=== PATIENT | female | born 1990 | race Caucasian/White ===

== ENCOUNTER 2019-10-22 23:42 | Emergency (ER) | payer OTHER, SELFPAY ==
[2019-10-22 23:57] VITALS: BP 122/81; PULSE 82; RESP 18; TEMP 37.1; O2SAT 98; BMI 30.5
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
--- NOTE | 2019-10-23 | PC.NURSE ---
PT states not feeling well, CP and SOB since 2100 tonight and a headache upon her arrival to ED. Pt denies cough, fever, n/v/d or cold like symptoms. 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 Pt states came to ER because her grandparents who babysit her child wanted her to get tested and are concerned they may have been exposed through pt. PT in no acute distress able to speak in full sentences and ambulate independently in ER.
--- NOTE | 2019-10-23 00:06 | DI.RAD.S_ITS ---
PROCEDURE: XR CHEST 1V INDICATIONS: Short of breath with chest pressure TECHNIQUE: One view of the chest was acquired. COMPARISON: [facility], CR, XR CHEST 2 VIEWS, 05/15/2018, 10:27. FINDINGS: Surgical changes and devices: None. Lungs and pleura: Lungs are clear. No pleural effusions or pneumothorax. Mediastinum: Mediastinal contours appear normal. Heart size is normal. Bones and chest wall: No suspicious bony lesions. Overlying soft tissues appear unremarkable. IMPRESSION: No acute cardiopulmonary disease. Dictated by: Fabiano Moreno M.D. on 10/23/2019 at 8:38 Approved by: Fabiano Moreno M.D. on 10/23/2019 at 8:38
[2019-10-23] MEDS: ACETAMINOPHEN 325 MG TABLET 975 MG PO (00:25)
[2019-10-23 01:00] VITALS: BP 121/80; PULSE 77; RESP 17; O2SAT 98
[2019-10-24 10:58] LABS: COVID19 Sendout Not Detected (Not Detected)
== END 2019-10-23 01:00 | disposition home or self-care (01) ==
PROVIDERS: Emergency Provider Emergency Medicine
DX: Z20.828 Contact with and (suspected) exposure to other viral communicable diseases (principal); R06.02 Shortness of breath; R07.9 Chest pain, unspecified
CPT/HCPCS: 71045; 87635; 93005; 99284

== ENCOUNTER 2019-12-01 16:20 | Emergency (ER) | payer OTHER, SELFPAY ==
[2019-12-01 16:53] VITALS: PULSE 110; RESP 20; TEMP 36.3; O2SAT 98
[2019-12-01] MEDS: IBUPROFEN 400 MG TABLET PO (17:38)
[2019-12-01] MEDS: HYDROCODONE/ACET 5/325 TABLET 1 TAB PO (17:38)
[2019-12-01] MEDS: ACETAMINOPHEN 325 MG TABLET PO (17:39)
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
[2019-12-01 17:55] LABS: Bacteria Urine None Seen; RBC Urine None Seen (0-5/HPF)
[2019-12-01] MEDS: LIDOCAINE PATCH 1 EACH ADH..PATCH TOP (18:05)
[2019-12-01 18:12] LABS: Culture Indicated Urine Cult Not Indicated; Squamous Epithelial Cell Urine 0-1 /HPF (0-5/HPF); WBC Urine 0-1/HPF (0-5/HPF)
[2019-12-01 19:07] VITALS: BP 138/83; PULSE 88; RESP 18; O2SAT 98
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
== END 2019-12-01 19:12 | disposition home or self-care (01) ==
PROVIDERS: Emergency Provider Nurse Practitioner Family
DX: M53.3 Sacrococcygeal disorders, not elsewhere classified (principal); V87.7XXA Person injured in collision between other specified motor vehicles (traffic), initial encounter
CPT/HCPCS: 72220; 81003; 81015; 81025; 99283; 99284